=== PATIENT | female | born 1990 | race Caucasian/White ===

== ENCOUNTER 2016-05-08 13:05 | Day surgery (SDC) | payer OTHER ==
[2016-05-08] MEDS ORDERED: LACTATED RINGERS 1,000 ML IV ONE (13:38)
[2016-05-08] MEDS ORDERED: MIDAZOLAM 2 MG/2 ML VIAL IVP ONE (15:51)
[2016-05-08] MEDS ORDERED: fentaNYL 250 MCG/5 ML VIAL IVP ONE (15:51)
== END 2016-05-08 13:06 | disposition home or self-care (01) ==
PROC: 0DB68ZX Excision of Stomach, Via Natural or Artificial Opening Endoscopic, Diagnostic (ICD-10-PCS; 2016-05-08)
PROC: 0DB18ZX Excision of Upper Esophagus, Via Natural or Artificial Opening Endoscopic, Diagnostic (ICD-10-PCS; 2016-05-08)
PROC: 0DBK8ZX Excision of Ascending Colon, Via Natural or Artificial Opening Endoscopic, Diagnostic (ICD-10-PCS; principal; 2016-05-08 14:30)
PROC: 0DB38ZX Excision of Lower Esophagus, Via Natural or Artificial Opening Endoscopic, Diagnostic (ICD-10-PCS; 2016-05-08 14:30)
DX: R19.4 Change in bowel habit (principal); D12.2 Benign neoplasm of ascending colon; R13.10 Dysphagia, unspecified; J02.9 Acute pharyngitis, unspecified; K20.9 Esophagitis, unspecified; F17.210 Nicotine dependence, cigarettes, uncomplicated
CPT/HCPCS: 43239; 45385; 81025; J3010; J7120

== ENCOUNTER 2017-01-28 14:41 | Outpatient (CLI) | payer OTHER ==
--- NOTE | 2017-01-28 18:08 | MRI Report ---
EXAM: LEFT KNEE MRI WITHOUT CONTRAST EXAM DATE: 01/28/2017 03:30 PM. CLINICAL HISTORY: Left knee pain. Instability. ACL repair in 2005. COMPARISON: None. TECHNIQUE: Multiplanar, multisequence T1-weighted and fluid-sensitive sequences of the knee without c ontrast. Other: None. FINDINGS: Bones: There is tricompartmental osteophyte formation. Articular Cartilage: There is moderate to severe thinning of the hyaline cartilage of the medial and lateral compartments. There is minimal surface erosion of the patellofemoral cartilage. Medial Meniscus: There is a radial tear of the posterior horn of the medial meniscus with extrusion. There is degenerative tearing of the body. Lateral Meniscus: The lateral meniscus is intact. Cruciate Ligaments: ACL graft reconstruction is completely ruptured. PCL is intact. Collateral Ligaments: The medial collateral and lateral collateral ligamentous structures are intact. Tendons: The quadriceps, patellar, semimembranosus, and popliteus tendons are unremarkable. Musculature: No edema or fatty atrophy. Other: Small joint effusion. No popliteal cyst. No loose bodies. The medial and lateral retinacula ar e intact. The subcutaneous tissues and fat pads are unremarkable. IMPRESSION: 1. Complete rupture of the ACL graft. 2. Moderate medial and lateral compartment osteoarthritis. 3. Small joint effusion. 4. Radial tear of the posterior horn of the medial meniscus with extrusion and complex tearing of the body. [facility] MUSCULOSKELETAL RADIOLOGY SECTION Referring Provider Line: [phone] SITE ID: [id number]
== END 2017-01-28 14:42 | disposition home or self-care (01) ==
LOC: DI 14:41
PROVIDERS: ATTEND Nurse Practitioner Family
DX: T85.898A Other specified complication of other internal prosthetic devices, implants and grafts, initial encounter (principal); S83.512A Sprain of anterior cruciate ligament of left knee, initial encounter; M25.462 Effusion, left knee; S83.242A Other tear of medial meniscus, current injury, left knee, initial encounter; M17.12 Unilateral primary osteoarthritis, left knee